=== PATIENT | male | born 1945 | race Two or more races ===

== ENCOUNTER → 2018-01-26 13:07 | Outpatient (CLI) | payer MEDICARE ==
[2018-01-26 14:00] LABS: BASOPHILS 0.5 % (0-2); HEMATOCRIT 45.3 % (42.0-54.0); HEMOGLOBIN 15.9 g/dL (13.5-17.5); IMMATURE GRANULOCYTES 0.2 % (0-5); LYMPHOCYTES 24.3 % (15-50); MCH 34.9 pg (26.0-34.0); MCHC 35.1 g/dL (31.0-37.0); MCV 99.3 fL (80.0-100.0); MEAN PLATELET VOLUME 11.7 fL (7.4-10.4); MONOCYTES 8.5 % (2-11); NEUTROPHILS 62.5 % (40-80); PLATELET COUNT 193 10x3/uL (130-400); RBC 4.56 10x6/uL (4.20-6.10); RDW 13.3 % (11.5-14.5); WBC 5.5 10x3/uL (4.8-10.8)
[2018-01-26 14:19] LABS: ALBUMIN 4.2 g/dL (3.4-5.0); ANION GAP 18.7 mmol/L (8-16); BILIRUBIN - TOTAL 0.47 mg/dL (0.2-1.3); CALCIUM 9.3 mg/dL (8.5-10.1); CARBON DIOXIDE 23.1 mmol/L (21.0-32.0); CREATININE - SERUM 1.4 mg/dL (0.6-1.3); POTASSIUM - SERUM 4.8 mmol/L (3.5-5.1); PROTEIN - SERUM 7.9 g/dL (6.4-8.2)
== END | disposition home or self-care (01) ==
LOC: D.LAB 13:07
PROVIDERS: Family Medicine
DX: I10 Essential (primary) hypertension (principal); Z00.00 Encounter for general adult medical examination without abnormal findings; M54.5 Low back pain; E78.5 Hyperlipidemia, unspecified; R19.7 Diarrhea, unspecified; M19.90 Unspecified osteoarthritis, unspecified site; R20.2 Paresthesia of skin

== ENCOUNTER → 2018-01-28 13:51 | Outpatient (CLI) | payer MEDICARE | END | disposition home or self-care (01) | LOC: D.ECHO 13:00 → D.US 13:51 | DX: I73.9 Peripheral vascular disease, unspecified (principal); R20.2 Paresthesia of skin; R01.1 Cardiac murmur, unspecified; R55 Syncope and collapse ==

== ENCOUNTER → 2018-01-30 09:34 | Outpatient (CLI) | payer MEDICARE ==
--- NOTE | ~2018-01-30 | EC ---
PATIENT:JOANNA COSTA DATE OF SERVICE: 01/30/18 SEX: M MEDICAL RECORD: [id number] DATE OF : 43 LOCATION:D.FORMERLY [facility], 1928–1983 AGE OF PATIENT: 72 ADMISSION DATE: 01/30/18 REFERRING PHYSICIAN: INTERPRETING PHYSICIAN: ERIBERTO BROWN MD ECHOCARDIOGRAM REPORT ECHO CHARGES 4 ECHO COMPLETE Date: 01/30 CLINICAL DIAGNOSIS: MURMUR ECHOCARDIOGRAPHIC MEASUREMENTS (adult normal given) AC root (d.<3.7cm) 3.0 cm LV Septum d (<1.2 cm> 1.6 cm Valve Excursion 1.1 cm LV Septum (systole) 2.2 cm Left Atria (s.<4.0cm> 4.7 cm LVPW d(<1.2cm) 1.2 cm RV (d.<2.3cm) 2.6 cm LVPW (sytole) 2.0 cm LV diastole(<5.6CM) 5.8 cm MV E-F(>70mm/sec) cm LV systole 3.1 cm LVOT Diameter 2.0 cm MV exc.(>10mm) cm Est.ejection fraction (50-75%) % DOPPLER: LVIT cm/sec A 118 cm/sec E 73.0 cm/sec LA cm/sec RVSP 32.0 mmHg LVOT 106 cm/sec AOP1/2T m/s Asc. Ao 209 cm/sec RVOT 67.0 cm/sec RA cm/sec PA 121 cm/sec AV Gradient Peak 18.0 mmHg AV Mean 9.7 mmHg AV Area 1.7 cm MV Gradient Peak 5.4 mmHg MV Mean 1.3 mmHg MV Area cm COMMENTS: Acetone Recovery Worker: Miracle MANOE Steel Floor Pan Placing Supervisor: 1 Dr. Brown TAPE# PACS Pericardial Effusion N DATE OF SERVICE: 01/30/2018 PROCEDURE: Echocardiogram. FINDINGS: 1. Left ventricular chamber size is within normal limits. Left ventricular systolic function is normal. Overall ejection fraction estimated at 55%. 2. Left atrium is enlarged at 4.7 cm. Right atrium and right ventricle chamber sizes are within normal limits. 3. Valvular structures: Aortic valve demonstrates calcific aortic sclerosis, ECHOCARDIOGRAM REPORT [id number] JOANNA COSTA but no significant aortic stenosis is present. The remaining valvular structures have normal structure and motion. 4. Doppler interrogation reveals mild aortic insufficiency, mild mitral regurgitation, mild tricuspid regurgitation, no other valvular insufficiency or stenosis. Pulmonary systolic pressure is normal estimated 32 mmHg. 5. No evidence of pericardial effusion or left ventricular thrombus. TRANSINT:[id number] Voice Confirmation ID: [id number] DOCUMENT ID: [id number] ERIBERTO BROWN MD at 1730 CC: [id number] DICTATION DATE: 01/30/18 1040 HEEL SORTER: 01/30/18 1241 REG [facility] [address] [id number]
== END | disposition home or self-care (01) ==
LOC: D.ECHO 01-28 13:00
DX: I73.9 Peripheral vascular disease, unspecified (principal); R20.2 Paresthesia of skin; R01.1 Cardiac murmur, unspecified; R55 Syncope and collapse

== ENCOUNTER → 2018-02-09 12:22 | Outpatient (CLI) | payer MEDICARE | END | disposition home or self-care (01) | LOC: D.CT 02-03 13:00 | DX: I70.8 Atherosclerosis of other arteries (principal); I73.9 Peripheral vascular disease, unspecified ==

== ENCOUNTER → 2018-02-11 14:28 | Outpatient (CLI) | payer MEDICARE ==
[2018-02-11 15:46] LABS: CREATININE - SERUM 1.3 mg/dL (0.6-1.3)
== END | disposition home or self-care (01) ==
LOC: D.CT 02-09 13:00
PROVIDERS: Family Medicine
DX: I70.8 Atherosclerosis of other arteries (principal); I73.9 Peripheral vascular disease, unspecified

== ENCOUNTER → 2018-02-20 07:46 | Outpatient (CLI) | payer MEDICARE | END | disposition home or self-care (01) | LOC: D.MRI 07:46 | DX: M54.16 Radiculopathy, lumbar region (principal) ==

== ENCOUNTER 2018-02-24 04:56 | Emergency (ER) | payer MEDICARE ==
[2018-02-24 05:59] LABS: BASOPHILS 0.4 % (0-2); EOSINOPHILS 3.1 % (0-7); HEMATOCRIT 43.2 % (42.0-54.0); HEMOGLOBIN 15.8 g/dL (13.5-17.5); IMMATURE GRANULOCYTES 0.1 % (0-5); LYMPHOCYTES 17.8 % (15-50); MCHC 36.6 g/dL (31.0-37.0); MCV 95.6 fL (80.0-100.0); MEAN PLATELET VOLUME 11.3 fL (7.4-10.4); MONOCYTES 4.5 % (2-11); NEUTROPHILS 74.1 % (40-80); PLATELET COUNT 179 10x3/uL (130-400); RBC 4.52 10x6/uL (4.20-6.10); RDW 12.3 % (11.5-14.5); WBC 7.7 10x3/uL (4.8-10.8)
[2018-02-24 06:12] LABS: ALBUMIN 4.2 g/dL (3.4-5.0); ANION GAP 16.4 mmol/L (8-16); BILIRUBIN - TOTAL 0.45 mg/dL (0.2-1.3); CALCIUM 9.6 mg/dL (8.5-10.1); CARBON DIOXIDE 24.4 mmol/L (21.0-32.0); CREATININE - SERUM 1.3 mg/dL (0.6-1.3); POTASSIUM - SERUM 3.8 mmol/L (3.5-5.1)
== END 2018-02-24 07:48 | disposition home or self-care (01) ==
LOC: D.ER 04:56
PROVIDERS: Family Medicine
DX: I10 Essential (primary) hypertension (principal); A08.4 Viral intestinal infection, unspecified; E86.0 Dehydration

== ENCOUNTER → 2018-12-28 11:12 | Outpatient (CLI) | payer MEDICARE | END | disposition home or self-care (01) | LOC: D.US 11:12 | PROVIDERS: ATTEND Surgery | DX: I83.893 Varicose veins of bilateral lower extremities with other complications (principal) ==

== ENCOUNTER 2019-01-22 06:55 | Day surgery (SDC) | payer MEDICARE ==
[2019-01-21 11:57] LABS: ANION GAP 13.7 mmol/L (8-16); CALCIUM 9.8 mg/dL (8.5-10.1); CARBON DIOXIDE 24.8 mmol/L (21.0-32.0); CREATININE - SERUM 1.7 mg/dL (0.6-1.3); POTASSIUM - SERUM 4.5 mmol/L (3.5-5.1)
[2019-01-21 12:03] LABS: HEMATOCRIT 42.9 % (42.0-54.0); HEMOGLOBIN 15.6 g/dL (13.5-17.5); MCH 34.7 pg (26.0-34.0); MCHC 36.4 g/dL (31.0-37.0); MCV 95.5 fL (80.0-100.0); MEAN PLATELET VOLUME 11.3 fL (7.4-10.4); RBC 4.49 10x6/uL (4.20-6.10); RDW 12.7 % (11.5-14.5); WBC 4.4 10x3/uL (4.8-10.8)
[~2019-01-22 06:55] MED LIST: LISINOPRIL-HCT1 EAC8 PO
[2019-01-22 08:08] VITALS: BP 167/65; BMI 31.2
--- NOTE | 2019-01-22 12:40 | NUR ---
ASSUMED CARE OF PATIENT. TOLERATING FL TRAY. FAMILY AT BEDSIDE. DRESSINGS CDI TO BILATERAL LOWER LEGS.
--- NOTE | 2019-01-22 13:45 | NUR ---
TOLERATED FL DIET. IV DC'D WITH CATHETER INTACT. WRITTEN AND VERBAL DC INST. GIVEN TO PATIENT ALONG WITH RX.
--- NOTE | 2019-01-22 13:55 | NUR ---
DC'D HOME WITH FAMILY VIA PRIVATE VEHICLE. TAKEN TO VEHICLE VIA WC. STABLE AT TIME OF DC.
--- NOTE | 2019-02-11 13:36 | OP ---
PATIENT NAME: JOANNA COSTA MEDICAL RECORD: [id number] :43 LOCATION:.FORMERLY [facility] ADMISSION DATE: SURGEON: ADI SALINAS MD DATE OF OPERATION: 01/22/2019 PREOPERATIVE DIAGNOSIS: Symptomatic bilateral lower extremity varicosities. POSTOPERATIVE DIAGNOSIS: Symptomatic bilateral lower extremity varicosities. PROCEDURE: Bilateral lower extremity avulsion phlebectomies times 11. SURGEON: Adi Salinas MD RIVET HAMMER MACHINE OPERATOR: None. BLOOD LOSS: Minimal. ANESTHESIA: General. COMPLICATIONS: None. The risks, possible complications and alternatives to the procedure were explained to the patient. He elects to proceed. I saw him in the holding area. With him standing, I marked all of the varicose veins. He confirmed that all the varicose veins were indeed marked with a permanent marker. OPERATIVE COURSE: The patient was conveyed to the operating suite electively on 01/22/2019. General anesthesia was induced by the anesthesia staff. The bilateral lower extremities were sterilely prepped and draped after the patient was positioned supine. At the varicose vein site, small skin incisions were accomplished. I then dilated with the phlebectomy device. Utilizing the phlebectomy hook, bilateral lower extremity avulsion phlebectomies times 11 were performed. Sterile dressings were applied including a compression garment. The patient was extubated and conveyed to post-anesthesia care unit where he was in stable condition. He will be dismissed home on a narcotic analgesic. The patient has lower extremity neuropathy and I specifically told the patient that this may help with his lower extremity pain, but he will not alleviate his neuropathy. TRANSINT:[id number] Voice Confirmation ID: [id number] DOCUMENT ID: [id number] ADI SALINAS MD at 1336 CC: [id number] DICTATION DATE: 02/11/19 1013 GEOLOGICAL E LOGGER: 02/11/19 1310 [facility] 01/22/[id number] [place] [address]
== END 2019-01-22 13:55 | disposition home or self-care (01) ==
LOC: D.OPS 06:55 → D.PAN 15:45
PROVIDERS: Anesthesiology; ATTEND Surgery
DX: I83.93 Asymptomatic varicose veins of bilateral lower extremities (principal); I83.893 Varicose veins of bilateral lower extremities with other complications

== ENCOUNTER → 2019-02-15 13:09 | Outpatient (CLI) | payer MEDICARE ==
[2019-01-22 08:08] VITALS: BMI 31.2
== END | disposition home or self-care (01) ==
LOC: D.US 13:09 → D.CT 14:30
PROVIDERS: ATTEND Surgery
DX: I73.9 Peripheral vascular disease, unspecified (principal)

== ENCOUNTER → 2019-03-01 12:39 | Outpatient (CLI) | payer MEDICARE | END | disposition home or self-care (01) | LOC: D.CN 12:39 → D.CT 16:00 | PROVIDERS: ATTEND Nurse Practitioner | DX: R07.9 Chest pain, unspecified (principal); R10.9 Unspecified abdominal pain; R19.7 Diarrhea, unspecified ==

== ENCOUNTER 2019-05-25 08:08 | Outpatient (CLI) | payer MEDICARE ==
[~2019-05-25] VITALS: Ht 154.9 cm; Wt 79.5 kg
--- NOTE | ~2019-05-25 | HEMODYNAMI ---
PATIENT:JOANNA GRAY MEDICAL RECORD: [id number] : 43 LOCATION:[facility] ADMISSION DATE: 05/25/19 Generatedon:05/25/201913:08 Patient name: JOANNA WEI Patient #: [id number] SS N: : 1945 Date of study: 05/25/2019 Page: Of Hemodynamic Procedure Report Patient Data Patient Demographics First Name: JOANNA Gender: Male Last Name: IGOR WEI : 1945 Patient #: [id number] Age: 73 year(s) Race: Other Additional ID: [id number] Contact details Address: [address] [place] [address] State: [place] City: [facility] Zip code: [address] Past Medical History Allergies Allergen Reaction Date Comments Reported Penicillins 05/25/2019 Admission Admission Data Admission Date: 05/25/2019 Admission Time: 8:08 Procedure Procedure Types Cath Procedure Peripheral Cath Diagnostic Procedure Abd/Extremity Extremities Left Lower Ext Arterio Procedure Description Procedure Date Procedure Date: 05/25/2019 Procedure Start Time: 12:13 Procedure End Time: 13:07 Procedure Staff Name Function Ezequiel Flores MD Performing Physician JUDSON TAYLOR RT Monitor Petty Gann RN Nurse Maryann Luna RN Nurse Beau Joseph RT Scrub Procedure Data Cath Procedure Fluoroscopy Diagnostic fluoroscopy Total fluoroscopy Time: time: 10.3 min 10.3 min Diagnostic fluoroscopy Total fluoroscopy dose: 544 dose: 544 mGy mGy Contrast Material Contrast Material Type Amount (ml) Isovue 300 85 Entry Location Entry Primary Successful Side Size Upsize Upsize Entry Closure Succ essful Closure Location (Fr) 1 (Fr) 2 (Fr) Remarks Device Remarks Femoral Left 5 Fr 6 Fr Angio-VIP artery Long 6Fr Diagnostic catheters Device Type Used For End Catheter Placement Merit ULTRA BOLUS FLUSH 5Fr 65CM catheter ([id number]) Procedure Medications Medication Administration Route Dosage Heparin Flush Bag added to field 2 bags (1000units/500ml NS) Lidocaine 1% added to field 20 Fentanyl I.V. 50 mcg Versed I.V. 1 mg Benadryl I.V. 25 mg Heparin Bolus 1000 units Fentanyl I.V. 25 mcg Versed I.V. 0.5 mg Versed I.V. 0.5 mg Fentanyl I.V. 25 mcg Hemodynamics Rest Heart Rate: 51 (bpm) Snapshots Pre Cath Intra NCS Post Cath Vital Signs Time Heart Resp SPO2 etCO2 NIBP (mmHg) Rhythm Pain Sedation Rate (ipm) (%) (mmHg) Status Level (bpm) 11:42:46 0 164/68(132) NSR 0 (11) 10(A) , No pain 11:53:50 58 13 99 25.4 Measuring NSR 0 (11) 10(A) , No pain 11:54:24 59 9 98 26.9 193/74(126) NSR 0 (11) 10(A) , No pain 11:58:57 57 14 99 31.4 189/75(152) NSR 0 (11) 10(A) , No pain 12:03:56 67 18 99 30.7 Measuring NSR 0 (11) 10(A) , No pain 12:04:35 74 19 98 27.7 192/78(134) NSR 0 (11) 10(A) , No pain 12:09:03 57 16 98 29.9 172/70(131) NSR 0 (11) 10(A) , No pain 12:13:34 58 15 98 27.7 178/70(132) NSR 0 (11) 10(A) , No pain 12:18:04 54 12 94 38.2 140/61(109) NSR 0 (11) 8(A) , No pain 12:22:24 53 14 98 22.5 139/60(105) NSR 0 (11) 8(A) , No pain 12:27:23 51 13 98 29.2 Measuring NSR 0 (11) 8(A) , No pain 12:27:31 52 12 98 30 136/62(97) NSR 0 (11) 8(A) , No pain 12:32:31 52 16 98 30.7 Measuring NSR 0 (11) 8(A) , No pain 12:32:39 52 16 98 30 142/56(93) NSR 0 (11) 8(A) , No pain 12:37:01 52 15 99 30 149/54(94) NSR 0 (11) 8(A) , No pain 12:41:23 51 13 98 30.7 136/54(88) NSR 0 (11) 8(A) , No pain 12:45:43 51 13 98 36 132/53(93) NSR 0 (11) 8(A) , No pain 12:50:42 50 17 98 35.2 Measuring NSR 0 (11) 8(A) , No pain 12:50:56 51 14 98 30.7 136/54(95) NSR 0 (11) 8(A) , No pain 12:55:14 48 11 98 0 123/60(85) NSR 0 (11) 8(A) , No pain 12:59:26 48 12 98 0 129/62(87) NSR 0 (11) 8(A) , No pain 13:03:46 49 12 98 30.7 138/47(87) NSR 0 (11) 8(A) , No pain Medications Time Medication Route Dose Verified Delivered Reason Notes Effe ctiveness by by 11:53:05 Heparin Flush added 2bags Ezequiel Nieves used for Bag to Flores Flores procedure (1000units/500ml field MD GIBSON NS) 11:53:22 Lidocaine 1% added 20ml Ezequiel Nieves for local to vial Flores Flores anesthetic field MD GIBSON 12:00:36 Benadryl I.V. 25 mg Ezequiel Dove for Flores Gann RN sedation 12:14:04 Fentanyl I.V. 50 Ezequiel Dove for mcg Flores Gann RN sedation 12:14:20 Versed I.V. 1 mg Ezequiel Dove for Flores Gann RN sedation 12:29:34 Heparin Bolus IA 1000 Ezequiel Nieves used for units Flores Flores procedure MD GIBSON 12:34:41 Fentanyl I.V. 25 Ezequiel Zapatai for mcg Flores Gann RN sedation 12:34:53 Versed I.V. 0.5 Ezequiel Zapatai for mg Flores Gann RN sedation 12:50:31 Versed I.V. 0.5 Ezequiel Zapatai for mg Flores Gann RN sedation 12:50:39 Fentanyl I.V. 25 Ezequiel Dove for [facility] [place] Gann RN sedation Procedure Log Time Note 11:40:57 Maryann Luna RN sent for patient. Start room use. 11:41:07 Time tracking: Regular hours (M-F 7:00 - 5:00) 11:41:12 Plan of Care:Hemodynamics will remain stable., Cardiac rhythm will remain stable., Comfort level will be maintained., Respiratory function will remain adequate., Patient/ family verbilizes understanding of procedure., Procedure tolerated without complication., Recovers from procedure without complications.. 11:41:21 Patient received from Outpatients to IR Alert and oriented. Tansferred to table in Supine position. 11:41:22 Warm blankets applied, and javid hugger turned on for patient comfort. 11:41:23 Correct patient and procedure confirmed by team. 11:41:24 ECG and BP/O2 sat monitors applied to patient. 11:41:25 Full Disclosure recording started 11:41:26 - 11:41:30 H&P Date Dictated: 05/25/2019 H&P Addendum completed by physician on day of procedure. (MUST COMPLETE FOR ALL OUTPATIENTS). 11:41:31 Pre-procedure instructions explained to patient. 11:41:31 Pre-op teaching completed and patient verbalized understanding. 11:41:33 Family in waiting room. 11:41:55 Patient NPO since Breakfast. 11:44:37 Patient allergic to Penicillins 11:44:41 Is the patient allergic to Iodine/contrast media? No. 11:45:42 Is patient on blood thinner?Yes 11:46:17 Patient diabetic? No. 11:46:18 - 11:46:20 ----Pre-sedation anethsthesia assessment.---- 11:46:24 Previous problem with sedation/anesthesia? No ? 11:46:25 Snore? Yes 11:46:26 Sleep apnea? No 11:46:27 Deviated septum? No 11:46:28 Opens mouth fully? Yes 11:46:29 Sticks out tongue? Yes 11:46:32 Airway obstruction? No ? 11:46:36 Dentures? No ? 11:46:37 - 11:47:17 IV patent on arrival in left hand with 0.45%NaCl at [facility]. 11:51:40 Left groin area was prepped with chlora-prep and draped in sterile fashion 11:51:59 Vital chart was started 11:52:00 Baseline sample Acquired. 11:53:05 Heparin Flush Bag (1000units/500ml NS) 2bags added to field was administered by Ezequiel Flores MD; used for procedure; 11:53:22 Lidocaine 1% 20ml vial added to field was administered by Ezequiel Flores MD; for local anesthetic; 11:56:05 Pre procedure: right dorsailis pedis pulse Doppler 11:56:07 Pre procedure: left dorsailis pedis pulse Doppler 11:56:10 Pre procedure: right posterior tibial pulse Doppler 11:56:14 Pre procedure: left posterior tibial pulse Doppler 11:56:17 Alarms reviewed by R. NAshely 11:56:18 Sharps counted by scrub and verified by RAshelyNAshely 11:56:19 - 12:00:36 Benadryl 25 mg I.V. was administered by Petty Gann RN; for sedation; 12:09:55 Use device set IR Diagnostic 12:10:11 Tegaderm 4 x 4 (1626W) opened to sterile field. 12:10:12 Sterile Angiographic Pack opened to sterile field. 12:10:13 Bag Decanter (2002S) opened to sterile field. 12:10:16 A Merit ULTRA BOLUS FLUSH 5Fr 65CM catheter ([id number]) was advanced over the wire. 12:10:17 PERCUTANEOUS ENTRY 19GA needle opened to sterile field. 12:10:18 DOC Extension wire (30193) opened to sterile field. 12:10:19 SHEATH 5FR [place] (SKG700) opened to sterile field. 12:10:38 - 12:10:42 Physician arrived 12:10:55 Left groin site verified by team. 12:11:01 Fire Safety Assessment: A--An alcohol-based skin anteseptic being used preoperatively., C--Open oxygen or nitrous oxide is being used. 12:11:06 3a) 45-59 Moderately reduced kidney function. 12:11:56 --------ALL STOP TIME OUT------ 12:11:58 Final Timeout: patient, procedure, and site verified with staff and physician. All members of the team are in agreement. 12:13:46 Procedure started. 12:14:00 GLIDE WIRE ANGLE 180cm (JL5404) opened to sterile field. 12:14:01 GLIDE CATHETER 5FR COBRA 65cm (CG502) opened to sterile field. 12:14:04 Fentanyl 50 mcg I.V. was administered by Petty Gann RN; for sedation; 12:14:12 TORQUE DEVICE PLASTIC .038 ( TD01) opened to sterile field. 12:14:20 Versed 1 mg I.V. was administered by Petty Gann RN; for sedation; 12:16:07 A 5 Fr sheath was inserted into the Left Femoral artery 12:17:09 GLIDE CATHETER 5FR COBRA 65cm (CG502) opened to sterile field. 12:29:34 Heparin Bolus 1000 units IA was administered by Ezequiel Flores MD; use d for procedure; 12:30:44 BARRETT 260 wire ([id number]) opened to sterile field. 12:30:45 SHEATH 6FR Destination (RSR01) opened to sterile field. 12:30:46 INFLATOR Merit BasixCompak (UU6355) opened to sterile field. 12:31:25 Sheath upsized to a 6 Fr Long. 12:33:37 Inflate balloon Inflation number: 1 A IN.PACT Admiral 6 x 40 x 130 DCB Balloon ([id number]) was prepped and advanced across the Undefined1 , then inflated to 8 AARON. 12:34:41 Fentanyl 25 mcg I.V. was administered by Petty Gann RN; for sedation; 12:34:53 Versed 0.5 mg I.V. was administered by Petty Gann RN; for sedation; 12:50:13 Inflate balloon Inflation number: 1 A In.Pact Admiral 5 x 60 x 130 DCB ([id number]) was prepped and advanced across the Undefined2 , then inflated to 0 AARON for 0:00 (min:sec) . 12:50:31 Versed 0.5 mg I.V. was administered by Petty Gann RN; for sedation; 12:50:39 Fentanyl 25 mcg I.V. was administered by Petty Gann RN; for sedation; 12:55:33 Inflate balloon Inflation number: 2 A In.Pact Admiral 5 x 60 x 130 DCB ([id number]) was prepped and advanced across the Undefined1 , then inflated . 12:58:48 ANGIOSEAL-VIP PLUS 6 FR opened to sterile field. 12:58:57 Sheath removed intact; hemostasis achieved with Angio-VIP 6Fr to the Left Femoral artery. 13:03:26 Procedure ended.(Physican Out) 13:04:23 Fluoroscopy time 10.30 minutes. 13:04:27 Fluoroscopy dose: 544 mGy 13:04:27 Flurop Dose total: 544 13:04:33 Contrast amount:Isovue 300 85ml. 13:04:35 Sharps counted by scrub and verified by R.N. 13:04:46 Post-op/insertion site Left Femoral artery dressed using a 4 x 4 and Tegaderm. 13:04:55 Post procedure instruction explained to patient.Patient verbalizes understanding. 13:04:58 Procedure and supply charges have been captured, reviewed, submitted an d are correct. 13:06:36 Report given to Outpatients. 13:06:40 Patient transfered to Outpatients with Bed. 13:07:53 Procedure ended. 13:07:53 Full Disclosure recording stopped 13:08:15 Vital chart was stopped Intervention Summary Intervention Notes Time ActionType Lesion and Equipment Used Action# Pressure Duration Attributes 12:33:37 Inflate Undefined1 IN.PACT 1 0 00:00 balloon Admiral 6 x 40 x 130 DCB Balloon ([id number]) 12:50:13 Inflate Undefined2 In.Pact 1 0 00:00 balloon Admiral 5 x 60 x 130 DCB ([id number]) 12:55:33 Inflate Undefined1 In.Pact 2 0 00:00 balloon Admiral 5 x 60 x 130 DCB ([id number]) Device Usage Item Name Manufacture Quantity Catalog Number [facility] Lot# / Charge Number Stock Stock Serial# Code Tegaderm 4 x 4 3M 1 1626W [id number] [id number] [id number] 5 (1626W) Sterile Cardinal 1 [id number] 652975 296004 5 Angiographic Health Pack Bag Decanter Microtek 1 028016 39169 092608 5 () Medical Inc. Merit ULTRA Merit 1 [id number] 361660 385675 5 BOLUS FLUSH Medical 5Fr 65CM catheter ([id number]) PERCUTANEOUS Cook Medical 1 M87750 145867 091520 5 [id number] ENTRY 19GA needle DOC Extension James 1 02317 230089 289405 156419 5 wire (31711) Vascular SHEATH 5FR Terumo 1 UJX112 396508 616616 754556 5 [place] (SAG201) GLIDE WIRE Terumo 1 KI6095 631873 993542 082838 5 ANGLE 180cm (YS1343) GLIDE CATHETER Terumo 2 CG502 113781 176662 5 5FR COBRA 65cm (CG502) TORQUE DEVICE [place] 1 TD01 523355 612585 910386 5 PLASTIC .038 ( Scientific TD01) BARRETT 260 wire Cook Medical 1 P23993 076057 60640 731062 5 (G36526) SHEATH 6FR Terumo 1 RSR01 363276 89782 443772 5 Destination (RSR01) INFLATOR Merit Merit 1 GH6889 891919 123779 825790 15 BasFreeATM Medical (IZ0595) IN.PACT Medtronic 1 [id number] 686752 911241 053024 5 Admiral 6 x 40 x 130 DCB Balloon ([id number]) In.Pact Medtronic 2 [id number] 573662 815567 283402 5 [id number] Admiral 5 x 60 x 130 DCB ([id number]) ANGIOSEAL-VIP [facility] [place] 1 844019 218491 916175 341053 5 PLUS 6 FR Signature Audit [place] Stage Time Signature Unsigned Intra-Procedure 05/25/2019 JUDSON TAYLOR RT 1:08:13 PM (R) Signatures Monitor : JUDSON TAYLOR RT Signature : Date : Time : [address] [place] [address]
[2019-05-25 08:40] LABS: BASOPHILS 0.6 % (0-2); EOSINOPHILS 5.2 % (0-7); HEMATOCRIT 43.5 % (42.0-54.0); HEMOGLOBIN 15.8 g/dL (13.5-17.5); IMMATURE GRANULOCYTES 0.3 % (0-5); LYMPHOCYTES 25.6 % (15-50); MCH 34.6 pg (26.0-34.0); MCHC 36.3 g/dL (31.0-37.0); MCV 95.4 fL (80.0-100.0); MEAN PLATELET VOLUME 11.6 fL (7.4-10.4); MONOCYTES 9.3 % (2-11); PLATELET COUNT 153 10x3/uL (130-400); RBC 4.56 10x6/uL (4.20-6.10); RDW 13.3 % (11.5-14.5); WBC 6.6 10x3/uL (4.8-10.8)
[2019-05-25 08:41] LABS: ANION GAP 14.6 mmol/L (8-16); CALCIUM 9.3 mg/dL (8.5-10.1); CARBON DIOXIDE 26.1 mmol/L (21.0-32.0); CREATININE - SERUM 1.6 mg/dL (0.6-1.3); POTASSIUM - SERUM 4.7 mmol/L (3.5-5.1)
[2019-05-25 08:55] LABS: APTT 30.1 SECONDS (22.8-39.4); INR 1.12 (0.85-1.17); PROTIME 13.9 SECONDS (11.6-15.0)
[2019-05-25 09:13] VITALS: BP 215/74; Ht 154.9 cm; Wt 79.5 kg
--- NOTE | 2019-05-25 10:43 | NUR ---
INFORMED ALBER RIVAS OF PT ELEVATED BP. ORDER WAS OBTAINED FROM DR FLORES FOR 10MG HYDRALAZINE IV. MED GIVEN AND BP RETAKEN AT THIS TIME. BP IS 193/69 AT THIS TIME. ALBER RIVAS INFORMED.
--- NOTE | 2019-05-25 14:31 | NUR ---
PT RESTING COMFORTABLY AT THIS TIME, PT DENIES PAIN OR NAUSEA. LLE IS WARM TO TOUCH, BRISK CAP REFILL, PEDAL PULSES PALPATED, STRONG AND REGULAR, NAD NOTED.
--- NOTE | 2019-05-25 14:51 | NUR ---
SEE VITALS SHEET FOR VITALS INFORMATION.
--- NOTE | 2019-05-25 16:00 | NUR ---
PT ABLE TO VOID 300 ML OF CLEAR YELLOW URINE AT THIS TIME. PT DC INSTRUCTIONS REVIEWED. PT VERBALIZES UNDERSTANDING. PT IV REMOVED, INTACT, NO REDNESS OR SWELLING NOTED AT SITE.
--- NOTE | 2019-05-25 16:10 | NUR ---
PT LEAVING OPS AT THIS TIME VIA WC. NAD NOTED.
== END 2019-05-25 14:10 | disposition home or self-care (01) ==
LOC: D.RAD 08:08
PROVIDERS: ATTEND Specialist
DX: I73.9 Peripheral vascular disease, unspecified (principal)

== ENCOUNTER → 2019-07-05 13:44 | Outpatient (CLI) | payer MEDICARE ==
[2019-05-25 09:13] VITALS: BMI 33.1
== END | disposition home or self-care (01) ==
LOC: D.US 13:44
PROVIDERS: ATTEND Internal Medicine
DX: I15.0 Renovascular hypertension (principal); R55 Syncope and collapse

== ENCOUNTER → 2019-07-07 10:15 | Outpatient (CLI) | payer MEDICARE ==
[2019-05-25 09:13] VITALS: BMI 33.1
== END | disposition home or self-care (01) ==
LOC: D.RAD 10:15
PROVIDERS: ATTEND Family Medicine
DX: M19.90 Unspecified osteoarthritis, unspecified site (principal); R42 Dizziness and giddiness

== ENCOUNTER → 2019-07-14 08:30 | Outpatient (CLI) | payer MEDICARE ==
[2019-05-25 09:13] VITALS: BMI 33.1
== END | disposition home or self-care (01) ==
LOC: D.RAD 08:30
PROVIDERS: ATTEND Specialist
DX: M48.061 Spinal stenosis, lumbar region without neurogenic claudication (principal)

== ENCOUNTER → 2019-07-20 08:05 | Outpatient (CLI) | payer MEDICARE ==
[2019-05-25 09:13] VITALS: BMI 33.1
--- NOTE | ~2019-07-20 | HEMODYNAMI ---
PATIENT:JOANNA GRAY MEDICAL RECORD: [id number] : 43 LOCATION:[facility] ADMISSION DATE: 07/20/19 Generatedon:07/20/20198:57 Patient name: JOANNA WEI Patient #: [id number] SS N: : 1945 Date of study: 07/20/2019 Page: Of Hemodynamic Procedure Report Patient Data Patient Demographics First Name: JOANNA Gender: Male Last Name: IGOR WEI : 1945 Patient #: [id number] Age: 73 year(s) Race: Other Additional ID: [id number] Contact details Address: [address] [place] [address] State: [place] City: [facility] Zip code: [address] Past Medical History Allergies Allergen Reaction Date Comments Reported Penicillins 05/25/2019 Penicillins 07/20/2019 Admission Admission Data Admission Date: 07/20/2019 Admission Time: 8:05 Procedure Procedure Types Cath Procedure Peripheral Cath Diagnostic Procedure Assistant Clinical Nurse Manager Peripheral Procedures Miscellaneous Epidural Steroid Injection Procedure Description Procedure Date Procedure Date: 07/20/2019 Procedure Start Time: 8:39 Procedure Staff Name Function Ezequiel Flores MD Performing Physician Francine Samson RT Landing Gear Mechanic Procedure Data Cath Procedure Fluoroscopy Diagnostic fluoroscopy Total fluoroscopy Time: 0.1 time: 0.1 min min Diagnostic fluoroscopy Total fluoroscopy dose: 2 dose: 2 mGy mGy Hemodynamics Rest Pre Cath Intra NCS Post Cath Procedure Log Time Note 8:27:44 Time tracking: Regular hours (M-F 7:00 - 5:00) 8:27:58 Pre-procedure instructions explained to patient. 8:27:59 Pre-op teaching completed and patient verbalized understanding. 8:28:01 Family in waiting room. 8:28:09 Patient allergic to Penicillins 8:28:13 8:28:26 Lumbar area was prepped with betadine and draped in sterile fashion 8:28:29 8:35:44 KIT EPIDURAL CATHETERIZATION opened to sterile field. 8:38:45 Physician arrived 8:38:46 --------ALL STOP TIME OUT------ 8:38:47 Final Timeout: patient, procedure, and site verified with staff and physician. All members of the team are in agreement. 8:39:31 Procedure started. 8:39:31 Full Disclosure recording started 8:39:40 Local anesthetic to Lumbar area with Lidocaine 1% by Ezequiel Flores MD.INITIAL ACCESS ONLY 8:55:57 Procedure ended.(Physican Out) 8:56:20 Fluoroscopy time 00.10 minutes. 8:56:23 Flurop Dose total: 2 8:56:23 Fluoroscopy dose: 2 mGy 8:56:26 Procedure and supply charges have been captured, reviewed, submitted and are correct. Device Usage Item Name Manufacture Quantity Catalog Hospital Part Current Minima l Lot# / Number Charge Number Stock Stock Serial# Code KIT EPIDURAL Teleflex 1 [id number] 5 CATHETERIZATION Signature Audit [place] Stage Time Signature Unsigned Intra-Procedure 07/20/2019 Francine Samson 8:57:51 AM RT(R) [facility] [address] [place] [address]
== END | disposition home or self-care (01) ==
LOC: D.RAD 08:05
PROVIDERS: ATTEND Specialist
DX: M48.061 Spinal stenosis, lumbar region without neurogenic claudication (principal)